=== PATIENT | female | born 1955 | race Asian ===

== ENCOUNTER 2025-06-20 18:13 | Emergency (ER) | payer MEDICAID, SELFPAY ==
[2025-06-20 18:16] VITALS: BP 134/68
[2025-06-20] MEDS: MOTRIN 600 MG PO (20:33)
--- NOTE | 2025-06-20 21:27 | ED.GENMED ---
History of Present Illness
General
Chief Complaint: Fall
Time Seen by Provider: 06/20/25 20:40
History of Present Illness
History of Present Illness:
69-year-old female presenting with right foot pain. Family states that patient was breaking down boxes and stepping on them when she accidentally twisted her right foot injuring the dorsal aspect of her right foot. No other falls or trauma
Past History
Past History
ED Past Medical History: Other
ED Past Surgical History: None
Social History
Tobacco: Former smoker
Alcohol: None
Drug: None
Personal:
Living: with family
Phy Exam
Physical Exam
Physical Exam:
Right foot: Tenderness palpation overlying right first metatarsal with soft tissue swelling. 2+ right DP pulse. No tenderness palpation to the base of the right fifth metatarsal. no right bilateral malleoli tenderness. Neurovascularly intact
Course
Orders/Labs/Results
Orders:
Orders
06/20/25 18:19
CR Foot - Right Min 3 Views Urgent
Comment:
Reason For Exam: injury
06/20/25 20:26
Ibuprofen [Motrin] 600 mg .ROUTE .STK-MED ONE
06/20/25 20:33
Ibuprofen [Motrin] 600 mg PO NOW STA
Vital Signs
Initial and Last Documented VS:
Initial Vital Signs
Temp Pulse Resp BP Pulse Ox
97.8 F 73 16 134/68 98
06/20/25 18:16 06/20/25 18:16 06/20/25 18:16 06/20/25 18:16 06/20/25 18:16
Last Documented Vital Signs
Temp Pulse Resp BP Pulse Ox
97.8 F 82 20 130/67 98
06/20/25 18:16 06/20/25 21:40 06/20/25 21:40 06/20/25 21:40 06/20/25 21:40
MDM/Problems Addressed
MDM/Problems Addressed:
69-year-old female presenting with right foot pain after twisting it. X-ray reviewed, no acute osseous abnormality. Discussed results with patient and family at bedside. Will place in hardsole shoe. Advised to take tylenol/motrin. Stable for
discharge with PCP follow-up
*Pulse Oximetry
SaO2: 98
Oxygen Mode of Delivery: Room air
Patient hypoxic: no
*Critical Care Note
Total Time (30-74mins, 75-104mins- exclusive of procedures): Not Applicable
ED Attending Note
-
Portions of this chart may have been created with voice recognition software.� Occasional wrong word or��sound alike� substitutions may have occurred due to the inherent limitations of voice recognition software.
Discharge Plan
Departure
Patient Disposition: Home (Routine Discharge)
Date of Disposition: 06/20/25
Time of Disposition: 21:29
Patient with high blood pressure during this ER visit?: Yes
Discharge Problem:
Foot pain, right, Right foot sprain
Instructions: Foot sprain - ED (DC), BLOOD PRESSURE
Referrals:
UNKNOWN - PT DOES,NOT KNOW [Family Provider]
Activity Restrictions/Additional Instructions:
Wear hardsole shoe
Take Tylenol 975 mg every 6 hours and/or ibuprofen 800 mg every 8 hours with food as needed for pain
Follow-up with primary care doctor in 1 to 2 days
Return to Emergency Department for new/worsening symptoms
Interventions
Interventions:
*Risk Screen - Suicide Last Done: 06/20/25 18:16
*General Assessment Last Done: 06/20/25 18:16
*Neglect/Abuse Screening Last Done: 06/20/25 21:40
*ED- Fall Risk Assessment Last Done: 06/20/25 21:40
*ED COVID-19 Vaccine History Last Done: 06/20/25 18:16
*Nursing Disposition Last Done: 06/20/25 21:40
ED-Musculoskeletal Assessment Last Done: 06/20/25 20:11
ED- Neurological Assessment Last Done: 06/20/25 20:11
ED-Skin Assessment Last Done: 06/20/25 20:11
Discharge Date and Time
Discharge Date/Time: 06/20/25 21:40
Print Language: POLISH
[2025-06-20 21:40] VITALS: BP 130/67
== END 2025-06-20 21:40 | disposition home or self-care (01) ==
LOC: EMR 18:13
PROVIDERS: EMERGENCY PHYSICIAN Emergency Medicine
DX: S93.601A Unspecified sprain of right foot, initial encounter (principal); X50.1XXA Overexertion from prolonged static or awkward postures, initial encounter; R03.0 Elevated blood-pressure reading, without diagnosis of hypertension; Z87.891 Personal history of nicotine dependence
CPT/HCPCS: 99283; 73630